=== PATIENT | male | born 1955 | race Caucasian/White ===

== ENCOUNTER → 2018-07-06 | Outpatient (CLI) | payer BC ==
[~2018-07-06] MED LIST: IOPAMIDOL (ISOVUE-300) 100 ML BTL ONE
== END ==
LOC: CIMAGING 10:14
PROVIDERS: ATTEND Family Medicine
DX: R68.84 Jaw pain (principal); Z87.891 Personal history of nicotine dependence; M47.892 Other spondylosis, cervical region
CPT/HCPCS: 70491-PO; Q9967